=== PATIENT | female | born 1975 | race Caucasian/White ===

== ENCOUNTER 2025-10-23 19:31 | Emergency (ER) | payer BC, SELFPAY ==
[2025-10-23] VITALS (23 sets, daily range): BP systolic 159–174; BP diastolic 95–105; PULSE 78–110; TEMP 36.9; O2SAT 98; BMI 27.4
--- NOTE | 2025-10-23 19:40 | ECG_ITS ---
The [facility] Test Date: 2025-10-23 Pat Name: JOVI NORTH Department: Room: - Gender: Female Ex Assistant/Program Director: : 1975 Requested By: 1031 Order Number: [id number] Reading MD: JOÃO FIELD M.D. Measurements Intervals [place] Rate: 96 P: 60 GA: 136 QRS: 59 QRSD: 88 T: 45 QT: 344 QTc: 398 Interpretive Statements 1100 Sinus rhythm [address] depression 9150 abnormal ECG No previous ECG available for comparison Electronically Signed On 10-23-2025 21:56:19 EST by JOÃO FIELD M.D.
--- NOTE | 2025-10-23 19:54 | XR_ITS ---
The [address] [address] Patient Name: JOVI NORTH MRN: [id number] date: 1975 Sex: F Assigned Patient Location: ER Current Patient Location: ED.MAIN Accession/Order Number: [id number] Exam Date: 10/23/2025 20:00 Report Date: 10/23/2025 20:52 At the request of: LINN CAREY MD Procedure: XR chest 1V PA CHEST: CLINICAL HISTORY: chest pain COMPARISON: None The heart is normal in size. The lungs are clear. The pulmonary vasculature is normal. Mediastinum and hilar regions are unremarkable. No pleural effusions are seen. Visualized bones are intact. XR/XR chest 1V IMPRESSION: NEGATIVE CHEST. Impression dictated by: Rob Calvo M.D. 10/23/2025 8:52 PM Dictation Location: [place] [address] Electronically authenticated by: [id number] Y Date: 10/23/2025 20:52
--- NOTE | 2025-10-23 20:11 | ED.CHESTPAI1 ---
HPI - Chest Pain General Chief Complaint: Chest Pain Stated Complaint: CHEST PAIN, PAIN BEHIND LEFT LEG Time Seen by Provider: 10/23/25 19:49 Source: patient Mode of arrival: walk-in History of Present Illness HPI narrative: presents complaining of pain of her left leg for the past few weeks. Last week she developed left sided chest pain. She became concerned when she bent over and the pain in her left chest increased. Not short of breath. no light headiness she also has constant substernal pain that was 8/10 when she came in but is now down to 4/10 Related Data Home Medications ?Medication ?Instructions ?Recorded ?Confirmed atorvastatin 10 mg tablet 10 mg PO DAILY 10/23/25 10/23/25 Allergies Allergy/AdvReac Type Severity Reaction Status Date / Time Latex, Natural Rubber Allergy Rash Verified 10/23/25 19:35 Review of Systems ROS Status of ROS 10 or more systems reviewed and unremarkable except as noted in history and below PFSH PFSH Social History Little interest or pleasure in doing things: not at all Feeling down, depressed, or hopeless: not at all Exam Constitutional Vital Signs, click to edit/add: Last Vital Signs Temp 98.4 F 10/23/25 19:35 Pulse 80 10/23/25 22:45 Resp 20 10/23/25 22:45 BP 159/96 H 10/23/25 22:45 Pulse Ox 98 10/23/25 19:35 O2 Del Method Room Air 10/23/25 19:35 Common normals: no apparent distress, average body habitus, oriented x3, no limitations, healthy appearing, alert and well nourished [facility] Common normals: normocephalic and head/scalp atraumatic Eye Common normals: EOMs intact bilaterally and conjunctivae normal Respiratory Common normals: normal respiratory effort, no retractions, no use of accessory muscles and clear to auscultation bilaterally Cardio Common normals: regular rate, regular rhythm and S1 normal heart sound GI Common normals: Normal to inspection, nondistended, normoactive bowel sounds present, soft to palpation and non-tender Extremity Other: neg swelling LLE. mild tenderness medial side distal left thigh just above the knee Neuro Common normals: oriented x3, CN's II-XII intact bilaterally, moves all extremities and no focal motor deficits Psych Appearance: grossly normal Course Vital Signs Vital signs: Vital Signs Temperature 98.4 F 10/23/25 19:35 Pulse Rate 110 H 10/23/25 19:35 Respiratory Rate 20 10/23/25 19:35 Blood Pressure 174/105 H 10/23/25 19:35 Pulse Oximetry 98 10/23/25 19:35 Oxygen Delivery Method Room Air 10/23/25 19:35 Temperature 98.4 F 10/23/25 19:35 Pulse Rate 80 10/23/25 22:45 Respiratory Rate 20 10/23/25 22:45 Blood Pressure 159/96 H 10/23/25 22:45 Pulse Oximetry 98 10/23/25 19:35 Oxygen Delivery Method Room Air 10/23/25 19:35 MDM - Chest Pain MDM Narrative Medical decision making narrative: patient presents with pain of her LLE and tenderness distal medial thigh. no swelling. Also episode of chest pain that increased when she bent over and substernal continuous pain. No dyspnea. EKG with mild ST depression. Serial troponin neg. d-dimer neg. substernal chest pain resolved after GI cocktail . Venous dopper LLE pending. Cxray clear venous doppler turned neg. Patient informed of the results and working diagnosis of GERD Lab Data Labs: Lab Results 10/23/25 10/23/25 Range/Units 20:15 22:43 WBC 7.2 (4.0-11.0) 10^3/uL RBC 4.96 (4.20-5.40) 10^6/uL Hgb 14.6 (12.0-16.0) g/dL Hct 43.1 (36.0-48.0) % MCV 86.9 (81.0-99.0) fL MCH 29.4 (26.7-34.0) pg MCHC 33.9 (29.9-35.2) g/dL RDW 13.4 (11.0-15.0) % Plt Count 153 (150-450) 10^3/uL MPV 12.9 (9.5-13.5) fL Neut % (Auto) 71.3 (43.0-75.0) % Lymph % (Auto) 17.0 L (20.5-60.0) % Bullock % (Auto) 7.8 (1.7-12.0) % Eos % (Auto) 2.8 (0.9-7.0) % Baso % (Auto) 1.0 (0.2-2.0) % Neut # (Auto) 5.1 (1.4-6.5) 10^3/uL Lymph # (Auto) 1.2 (1.2-3.8) 10^3/uL Bullock # (Auto) 0.6 (0.3-0.8) 10^3/uL Eos # (Auto) 0.2 (0.0-0.7) 10^3/uL Baso # (Auto) 0.1 (0.0-0.1) 10^3/uL Abs Immat Gran (auto) 0.01 (0.00-0.03) 10^3/uL Imm/Tot Granulo (auto) 0.1 (0.0-0.5) % D-Dimer 0.39 (<=0.59) mg/L FEU Sodium 141 (136-145) mmol/L Potassium 3.5 (3.5-5.1) mmol/L Chloride 104 (98-107) mmol/L Carbon Dioxide 26.7 (21.0-32.0) mmol/L Anion Gap 13.8 BUN 16.0 (7.0-18.0) mg/dL Creatinine 0.74 (0.55-1.02) mg/dL Est GFR ( Amer) >60 (>=60 mL/min/1.73m^2) Est GFR (Non-Af Amer) >60 (>=60 mL/min/1.73m^2) BUN/Creatinine Ratio 21.6 Glucose 97 (74-106) mg/dL Calcium 9.5 (8.5-10.1) mg/dL Troponin I High Sens 5.1 5.4 (4.0-51.3) pg/mL Discharge Plan Discharge Chief Complaint: Chest Pain Clinical Impression: Atypical chest pain, GERD (gastroesophageal reflux disease), Chest pain Patient Disposition: Home, Self-Care Prescriptions / Home Meds: No Action atorvastatin 10 mg tablet 10 mg PO DAILY Print Language: Bahamian Instructions: Chest Pain (ED), GERD (Gastroesophageal Reflux Disease) (ED) Additional Instructions: use prilosec or similar and follow up with your doctor next week Referrals: OWEN STORM [Primary Care Provider, Family Practice] - 1 week
[2025-10-23 20:36] LABS: Hematocrit 43.1 % (36.0-48.0); Hemoglobin 14.6 g/dL (12.0-16.0); Immature Granulocytes Abs Auto 0.01 10^3/uL (0.00-0.03); Immature Granulocytes Pct Auto 0.1 % (0.0-0.5); Lymphocytes Absolute Auto 1.2 10^3/uL (1.2-3.8); Mean Corpuscular HGB Conc 33.9 g/dL (29.9-35.2); Mean Corpuscular Hemoglobin 29.4 pg (26.7-34.0); Mean Corpuscular Volume 86.9 fL (81.0-99.0); Platelet Count 153 10^3/uL (150-450); Red Blood Count 4.96 10^6/uL (4.20-5.40); White Blood Count 7.2 10^3/uL (4.0-11.0)
--- OUTSIDE RECORDS SUMMARY | 2025-10-23 20:36 | XMS_ITS | Clinical Summary ---
Author Organization [facility] Address [address] [place] [address] Phone Care Team Providers Care Consumer Experience Consultant Name Role Phone Haylee Salguero DO Primary Care Provider [phone] Social History Tobacco UseTypesPacks/DayYears UsedDateSmoking Tobacco: Never Assessed CommentsUnknownSex and Gender InformationValueDate RecordedSex Assigned at Not on fileLegal RybEoznzv26/25/2022 11:37 PM ESTGender IdentityNot on file Sexual OrientationNot on file Plan of Treatment Not on file Care Teams Team MemberRelationshipSpecialtyStart DateEnd Date Haylee Salguero, [address] [place] [address] PCP - General06/19/18
--- OUTSIDE RECORDS SUMMARY | 2025-10-23 20:36 | XMS_ITS | Clinical Summary ---
Author Organization [facility] Address [address] [place] [place] [address] Care Team Providers Care Rivet Spinner Name Role Phone Haylee Salguero DO Primary Care Provider [phone]- [phone] Haylee Salguero DO Unavailable [phone] Allergies Active AllergyReactionsCriticalityNoted PcozGnhghqlmHcigsIpjnrkr91/21/2023Onion 03/05/2023 Medications MedicationSigDispense QuantityRefillsLast FilledStart DateEnd DateStatus Elderberry 500 MG capsule ElderberryActive Multiple Vitamin (Multivitamin Adult) tablet as directed OrallyActive atorvastatin (Lipitor) 10 MG tablet Indications:HypercholesteremiaTake 1 tablet (10 mg) by mouth Daily 90 tablet 306//104484/6Active Active Problems ProblemNoted DateDiagnosed DateHx of total hysterectomy with removal of both tubes and hzyselo8707/30/2024Midline fsfqbobls09/26/2024atellofemoral pain syndrome of right knee01/14/2024Stress incontinence of urine01/14/2024 Thrombocytopenic mfmbpgwu40/26/2024Varicose veins of both lower extremities 01/14/2024Venous ftclknnpqadxe25/26/2024 Encounters DateTypeDepartmentCare VlwgOoaovaquavm00/23/2025 9:45 AM EDTOffice Visit [facility] [address] [place] [address] Antonia Franks MD Acute atopic conjunctivitis of left eye (Primary Dx); Myopia of both eyes09/10/2025amboo [facility] [address] [place] [address] Antonia Franks MD 09/10/20257942Wahomu79/07/2025 10:15 AM EDTOffice Visit [facility] [address] [place] [address] Antonia Franks MD Acute atopic conjunctivitis of left eye (Primary Dx)08/25/2025amboo flowsheet [facility] [address] [place] [address] Antonia Franks MD 08/25/20259198Pklzyy34/23/2025 11:30 AM EDTOffice Visit [facility] [address] [place] [phone] Haylee Salguero, Lumbar radiculopathy (Primary Dx)08/11/2025amboo flowsheet [facility] [address] [place] [address] Haylee Salguero, 08/11/20254311Zyalyk60/22/2025Travelfrom Last 3 Months Immunizations ImmunizationAdministration DatesNext DkdSupc0506/05/2018,01/11/2015 Family History Medical HistoryRelationNameCommentsColon polypsBrotherColon polypsFatherLarry CloudDementiaFatherLarry CloudGlaucomaFatherLarry CloudHeart diseaseFatherLarry CloudHypertensionFatherLarry CloudMacular degenerationFatherLarry CloudDiabetes MotherJudy CloudHeart diseaseMotherJudy CloudKidney diseaseMotherJudy [place] Thyroid diseaseMotherJudy RqbgoOkcnvvxbQaztVbouewLbthhlddXtxztbw7Npqovsde8Frjaul Cyrus CloudDeceasedMotherJudy CloudAlive Social History Tobacco UseTypesPacks/DayYears UsedDateSmoking Tobacco: FpgdnqElmbcaumve54.3 04/19/1997 - 08/19/2002Smokeless Tobacco: Never Comments:Over 10 yrs. Since quitting Alcohol UseStandard Drinks/WeekCommentsYes1 (1 standard drink = 0.6 oz pure alcohol)B1300 Health LiteracyAnswerDate RecordedHow often do you need to have someone help you when you read instructions, pamphlets, or other written material from your doctor or pharmacy?Never01/14/2025Social Connection and Isolation PanelAnswerDate RecordedIn a typical week, how many times do you talk on the phone with family, friends, or neighbors?More than three times a week 01/14/2025How often do you get together with friends or relatives?Once a week 01/14/2025How often do you attend spiritism or latter-day services?More than 4 times per year01/14/2025Do you belong to any clubs or organizations such as spiritism groups, unions, fraternal or athletic groups, or school groups?Yes01/14/2025How often do you attend meetings of the clubs or organizations you belong to?More than 4 times per year01/14/2025re you , , , , never , or living with a partner?Kxjxhak4901/14/2025UDIT-CAnswerDate RecordedQ1: How often do you have a drink containing alcohol?2-4 times a month 08/11/2025Q2: How many drinks containing alcohol do you have on a typical day when you are drinking?1 or Q3: How often do you have six or more drinks on one occasion?Never08/11/2025Overall Financial Resource Strain (CARDIA) AnswerDate RecordedHow hard is it for you to pay for the very basics like food, housing, medical care, and heating?Not hard at all01/14/2025PHQ-2AnswerDate RecordedPatient Health Questionnaire-2 Rpkjt516Finlifepoint hospitals [place] of Occupational Health - Occupational Stress QuestionnaireAnswerDate RecordedDo you feel stress - tense, restless, nervous, or anxious, or unable to sleep at night because yourmind is troubled all the time - these days?To some rycglk8901/14/2025 Exercise Vital SignAnswerDate RecordedOn average, how many days per week do you engage in moderate to strenuous exercise (like a brisk walk)?6 days01/14/2025On average, how many minutes do you engage in exercise at this level?60 min 01/14/2025Hunger Vital SignAnswerDate RecordedWithin the past 12 months, you worried that your food would run out before you got the money to buymore.Never true01/14/2025Within the past 12 months, the food you bought just didn't last and you didn't have money to get more.Never true01/14/2025PRAPARE - TransportationAnswerDate RecordedIn the past 12 months, has lack of transportation kept you from medical appointments or from getting medications?No 01/14/2025In the past 12 months, has lack of transportation kept you from meetings, work, or from getting things needed for daily living?No01/14/2025 Housing Stability Vital SignAnswerDate RecordedIn the last 12 months, was there a time when you were not able to pay the mortgage or rent on time?No01/07/2024 Number of Places Lived in the Last YearNot on file01/07/2024In the last 12 months, was there a time when you did not have a steady place to sleep or slept in [facility] (including now)?No01/07/2024Housing Stability Vital SignAnswerDate RecordedIn the last 12 months, was there a time when you were not able to pay the mortgage or rent on time?01/14/2025Number of Times Moved in the Last Year Not on file01/14/2025t any time in the past 12 months, were you homeless or living in a custodial (including now)?No01/14/2025CommentsNoSex and Gender InformationValueDate RecordedSex Assigned at VxzyeVngudp02/19/2023 3:53 PM EDT Legal TdzPkntzy76/15/2023 7:20 PM EDTGender PmbyzmujWwzgka58/19/2023 3:53 PM EDT Sexual OrientationNot on file Last Filed Vital Signs Vital SignReadingTime TakenCommentsBlood Frttfdhc109/8809/ 11:37 AM EDT Ydlmt977508/11/2025 11:37 AM FYGDvcfsazqwfc40.1 ??C (98.7 ??F)08/11/2025 11:37 AM EDTRespiratory Rate--Oxygen Ymulermrhf07%08/11/2025 11:37 AM EDTInhaled Oxygen Concentration--Qbgocx87.1 kg (181 lb)08/11/2025 11:37 AM EGSIqjjho284.2 cm (5' 7 )08/11/2025 11:37 AM EDTBody Mass Index28.35008/11/2025 11:37 AM EDT Plan of Treatment DateTypeDepartmentCare Team (Latest Contact Info)Ggytdapoxqh09/02/2026 8:30 AM ESTOffice Visit [facility] [address] [place] [address] Haylee Salguero, DO [address] [place] [address] 05/20/2026 10:30 AM EDTOffice Visit [facility] [address] [place] [address] Kaushik Myers, DO [address] [place], [place] [id number] Health MaintenanceDue DateLast DoneCommentsCT Gmtpfbmmjyxf1977FIT-DNA 1975FIT1975FOBT1975 5729Tzqavdtwnzabh1977COVID-19 Vaccine ( season)2021, 03/04/2021, 02/04/20214425Xufzurctj29/20/2026 01/08/2025, 01/07/2024, 01/04/2023, Additional history existsInfluenza Vaccine (#1)05/18/2026Postponed from 07/20/2025 (Patient Refused)Rqjizbrhohu41/16/2034 07/04/2024, 07/04/2024, 08/16/2024Colorectal Cancer Qzdypmjbg99/16/2034Cervical Cancer ScreeningDiscontinuedPap UxjqpQkldbvlouqem44/10/2024, 02/24/2021 HPV/CotestDiscontinuedPneumococcal Vaccine: Pediatrics (0 to 5 Years) and At- Risk Patients (6 to 64 Years)Aged OutNo longer eligible based on patient's age to complete this topic Procedures Procedure NamePriorityDate/TimeAssociated DiagnosisCommentsBI MAMMOGRAM SCREENING TOMOSYNTHESIS ZRLIYKSXI87/20/2025 10:25 AM EST FOTWMLFZGMTNfansdg11/16/2024 2:28 PM EDTTHINPREP IMAGING PAP AND HPV DNA REFLEX HPV 16,69Kwefgjk85/10/2024 12:01 PM EDT Screening for malignant neoplasm of cervix Screening for HPV (human papillomavirus) from Last 3 Months or Most Recently Relevant to Health Maintenance Results * Bilateral screening mammogram with tomosynthesis (01/08/2025 10:25 AM EST) Anatomical RegionLateralityModalityBreastBilateralMammographySpecimen (Source) Anatomical Location / LateralityCollection Method / VolumeCollection Time Received Time01/08/2025 10:25 AM EST Impressions 01/08/2025 10:29 AM EST No mammographic evidence of malignancy. Routine follow-up recommended in one year. ?? RESULT CODE: 2 ? Benign Findings(s) ? DENSITY CODE: 2 (approximately 25-50% glandular) ? FOLLOW UP: 1YR ? THE FALSE-NEGATIVE RATE OF MAMMOGRAPHY IS APPROXIMATELY 10%. ? IMAGING OF A PALPABLE ABNORMALITY MUST BE BASED ON CLINICAL GROUNDS. ? PATIENT WAS ENTERED INTO A REMINDER SYSTEM WITH A TARGET DUE DATE FOR THE NEXT MAMMOGRAM. ? Impression dictated by: Weston Bradley M.D.01/08/2025 10:26 AM ? Dictation Location: [facility] ? Transcribed By: ? PWS ?02/20/25 1026 ? Dictated By: ?Weston Bradley S DO ?01/08/25 1025 ? Signed By: <Electronically signed by Weston Bradley, DO in OV> ? 01/08/25 1026 Narrative 01/08/2025 10:29 AM [facility] ?[facility] [place] ?[address] ? [place] [address] ? Mammography Report ? Signed ? Patient: Dahm,Erica E ?MR#: [id number] ?? 68 ? : 1975 ?Acct:[id number] ? Age/Sex: 49 / F ?ADM Date: 01/08/25 ? Loc: [place] ?Room: ?Type: REG CLI ?? Attending Dr: Referral Self ?? Copies to: Haylee Salguero DO ?? SELF,REFERRAL ? Ordering Provider: SELF,REFERRAL ?? Date of Service: 01/08/25 ?? MM/MM screening mammo BI w/CAD: SCREENING ? BILATERAL ??Screening ??Full Field digital mammogram with 3-D imaging. ? Full field digital CC and MLO imaging performed. ??CAD utilized. ? COMPARISON: 08/20/1924, 12/10/2020 ? HISTORY: Annual screening ? BREAST COMPOSITION: Scattered fibroglandular densities of the breast parenchyma identified ? BREAST CALCIFICATIONS: Benign calcifications present. ? VASCULAR CALCIFICATIONS: None ? ARCHITECTURAL DISTORTION: None ? BREAST NODULE: None ? AXILLARY LYMPH NODES: Normal ? POSTSURGICAL CHANGES: None ? MM/MM screening mammo BI w/CAD ?? Procedure Note Radiology, Radiologist, - 01/08/2025 [facility] [place] [address] [place] [address] Mammography Report Signed Patient: Erica Gonzalez EMR#: [id number] 68 : 1975Acct:[id number] Age/Sex: 49 / FADM Date: 01/08/25 Loc: [place] Room:Type: [facility] Attending Dr: Referral Self Copies to: Haylee Salguero DO SELF,REFERRAL Ordering Provider: SELF,REFERRAL Date of Service: 01/08/25 MM/MM screening mammo BI w/CAD: SCREENING BILATERAL Screening Full Field digital mammogram with 3-D imaging. Full field digital CC and MLO imaging performed. CAD utilized. COMPARISON: 08/20/1924, 12/10/2020 HISTORY: Annual screening BREAST COMPOSITION: Scattered fibroglandular densities of the breastparenchyma identified BREAST CALCIFICATIONS: Benign calcifications present. VASCULAR CALCIFICATIONS: None ARCHITECTURAL DISTORTION: None BREAST NODULE: None AXILLARY LYMPH NODES: Normal POSTSURGICAL CHANGES: None MM/MM screening mammo BI w/CAD IMPRESSION: No mammographic evidence of malignancy. Routine follow-up recommended inone year. RESULT CODE: 2 Benign Findings(s) DENSITY CODE: 2 (approximately 25-50% glandular) FOLLOW UP: 1YR THE FALSE-NEGATIVE RATE OF MAMMOGRAPHY IS APPROXIMATELY 10%. IMAGING OF A PALPABLE ABNORMALITY MUST BE BASED ON CLINICAL GROUNDS. PATIENT WAS ENTERED INTO A REMINDER SYSTEM WITH A TARGET DUE DATE FOR THENEXT MAMMOGRAM. Impression dictated by: Weston Bradley M.D.01/08/2025 10:26 AM Dictation Location: [facility] Transcribed By: GERARDO 01/08/25 1026 Dictated By: Weston Bradley DO 01/08/25 1025 Signed By: <Electronically signed by Weston Bradley DO in OV> 01/08/25 1026 Authorizing ProviderResult TypeResult StatusGeneric External Data ProviderIMG BI PROCEDURESFinal Result * Colonoscopy (07/04/2024 2:28 PM EDT)Anatomical RegionLateralityModality Endoscopy Narrative Authorizing ProviderResult TypeResult StatusAllnicole Milan Salguero DOENDOSCOPY PROCEDURE ORDERABLESFinal Result * THINPREP IMAGING PAP AND HPV DNA REFLEX HPV 16,18 (04/28/2024 12:01 PM EDT) ComponentValueRef RangeTest MethodAnalysis TimePerformed AtPathologist SignatureCLINICAL INFORMATIONQUESTComment:None givenLMPQUESTComment:NONE GIVEN PREV. PAPQUESTComment:NONE GIVENPREV. BXQUESTComment:NONE GIVENSOURCEQUEST Comment:None givenSTATEMENT OF ADEQUACYQUESTComment: Satisfactory for evaluation. Endocervical/transformation zone component present. INTERPRETATION/RESULTQUESTComment: Cytology Results: Negative for intraepithelial lesion or malignancy. COMMENTQUESTComment: This Pap test has been evaluated with computer assisted technology. CYTOTECHNOLOGISTQUESTComment: [facility], CT(ASCP) CT screening location: [place] [address]. REVIEW CYTOTECHNOLOGISTQUESTComment: [facility], CT(ASCP) CT screening location: [place] [address]. (ALWAYS MESSAGE)QUESTComment: EXPLANATORY NOTE: The Pap is a screening test for cervical cancer. It is not a diagnostic test and is subject to false negative and false positive results. It is most reliable when a satisfactory sample, regularly obtained, is submitted with relevant clinical findings and history, and when the Pap result is evaluated along with historic and current clinical information. HPV DNA, HIGH RISK, CERVICALNot DetectedNOT DETECTEDQUESTComment: Not Detected High Risk HPV types (16,18,31,33,35,39,45,51,52, 56,58,59,66,68) were not detected. Other HPV types which cause anogenital lesions may be present. The significance of the other types of HPV in malignant processes has not been established. Methodology: Real Time PCR Specimen (Source)Anatomical Location / LateralityCollection Method / Volume Collection TimeReceived TimeSwabCervix uteri structure / Ibresuo9804/28/2024 12:01 PM EDT04/29/2024 2:57 AM EDT Narrative Resulting Agency Comment Performing Organization Information ?Site ID: AMD ?Name: [facility] ?Address: [address] [place] [address] [place], [place] ?Director: Theodore Rivera M.D.,PhD ?Site ID: [id number] ?Name: [facility] ?Address: [address] [place] [address], [address] [place] [id number] ?Director: Juanpablo Gonzalez MD Authorizing ProviderResult TypeResult StatusRichard A Visci DOLAB CYTOLOGY ORDERABLESFinal ResultPerforming OrganizationAddressCity/State/ZIP CodePhone Number [facility] from Last 3 Months or Most Recently Relevant to Health Maintenance Insurance Care Teams Team MemberRelationshipSpecialtyStart DateEnd Date Haylee Salguero DO [address] [place] [address] PCP - GeneralFamily Medicine05/09/23 Haylee Salguero DO [address] [place] [address] LAURENCE - Apryl [employer]11/19/24
--- OUTSIDE RECORDS SUMMARY | 2025-10-23 20:36 | XMS_ITS | Clinical Summary ---
Author Organization [facility] Address [address], [address] [place] [address] Care Team Providers Care Watch And Clock Repair Clerk Name Role Phone Haylee Salguero DO Primary Care Provider +1- [phone] Allergies No known active allergies Medications MedicationSigDispense QuantityRefillsLast FilledStart DateEnd DateStatus MV-Min-Fe Fum-FA-DHA ( 1 PO) Take by mouthActive Ferrous Gluconate (IRON) 240 (27 FE) MG TABS Take by mouth dailyActive Social History Tobacco UseTypesPacks/DayYears UsedDateSmoking Tobacco: Never Assessed CommentsUnknownSex and Gender InformationValueDate RecordedSex Assigned at Not on fileLegal NqzXdnocf91/10/2013 7:42 PM ESTGender IdentityNot on fileSexual OrientationNot on file Last Filed Vital Signs Vital SignReadingTime TakenCommentsBlood Ksqxrajr728/7311/17/2016 2:02 PM EST Hezyu242611/17/2016 2:02 PM HEJYdmzkozsfku44 ??C (98.6 ??F)11/17/2016 12:27 PM EST Respiratory Enev2163 2:02 PM ESTOxygen Vkyfmoaivo360%11/17/2016 2:02 PM ESTInhaled Oxygen Concentration--Otamqt41 kg (172 lb)11/17/2016 12:27 PM EST Height--Body Mass Index-- Plan of Treatment Not on file Care Teams Team MemberRelationshipSpecialtyStart DateEnd Date Haylee Salguero DO PCP - Cygqhqn41/30/16
[2025-10-23 20:57] LABS: Anion Gap 13.8; Blood Urea Nitrogen 16.0 mg/dL (7.0-18.0); Calcium 9.5 mg/dL (8.5-10.1); Carbon Dioxide 26.7 mmol/L (21.0-32.0); Chloride 104 mmol/L (98-107); Estimated GFR (African America >60 (>=60 mL/min/1.73m^2); Estimated GFR (Non-African Ame >60 (>=60 mL/min/1.73m^2); Glucose 97 mg/dL (74-106); Potassium 3.5 mmol/L (3.5-5.1); Sodium 141 mmol/L (136-145)
[2025-10-24 00:49] VITALS: BP 149/92; PULSE 81
== END 2025-10-24 00:56 | disposition home or self-care (01) ==
PROVIDERS: Emergency Provider Internal Medicine; PCP Family Medicine
DX: R07.89 Other chest pain (principal); K21.9 Gastro-esophageal reflux disease without esophagitis; R07.9 Chest pain, unspecified
CPT/HCPCS: 36415; 71045; 80048; 84484; 85025; 85378; 93005; 93971; 99284; 99285